=== PATIENT | male | born 1960 | race Hispanic/Latino ===

== ENCOUNTER 2022-09-13 09:24 | Emergency (ER) | payer BC ==
[2022-09-13] MEDS ORDERED: MORPHINE 4 MG/ML SYR ONE (09:53)
[2022-09-13] MEDS ORDERED: FAMOTIDINE 20 MG/2 ML VIAL IV ONE (09:53)
[2022-09-13] MEDS ORDERED: ONDANSETRON 4 MG/2 ML VIAL ONE (09:53)
[2022-09-13 10:06] LABS: Urine Blood Negative (Negative); Urine Glucose Negative (Negative); Urine Protein Negative (Negative)
[2022-09-13 10:11] LABS: Absolute Lymphocytes (CBC) 0.5 K/uL (0.7-4.9); Hematocrit 30.9 % (39.6-49.0); MCV 88.5 fL (80-100); MPV 7.8 fL (7.6-11.3); RBC Red Blood Cell Count 3.48 M/uL (4.33-5.43)
[2022-09-13 10:30] LABS: Albumin 2.8 g/dL (3.4-5.0); Bilirubin Total 0.4 mg/dL (0.2-1.0); Potassium 3.4 mmol/L (3.5-5.1); Protein, Total 7.4 g/dL (6.4-8.2)
--- NOTE | 2022-09-13 11:17 | RAD REPORT ---
EXAM DESCRIPTION: CTAbdomen Pelvis W Contrast - 09/13/2022 10:57 am CLINICAL HISTORY: Abdominal pain. lower abdominal pain, diarrhea COMPARISON: No comparisons TECHNIQUE: Biphasic CT imaging of the abdomen and pelvis was performed with 100 ml non-ionic IV cont rast. All CT scans are performed using dose optimization technique as appropriate and may include automated exposure control or mA/KV adjustment according to patient size. FINDINGS: The lung bases are clear. The liver, spleen, pancreas, adrenal glands and kidneys are within normal limits. No bowel obstruction, free air, free fluid or abscess. There is a thickened appearance in a circumfer ential fashion involving the majority of the ascending colon as well as the transverse colon. Mild in volvement of the rectosigmoid colon also suspected. This is favored to be related to colitis. The jordan endix is normal. No evidence of significant lymphadenopathy. No suspicious bony findings. IMPRESSION: Moderate thickened appearance to the colon greatest involving the ascending and transver se colon is noted. This suggests a nonspecific colitis. Recommend follow-up colonoscopy for direct visualization of the region.
[2022-09-13] MEDS ORDERED: Ringers Lactate 1,000 ML IV ONE (11:23)
--- NOTE | 2022-09-13 11:56 | EDPHYS ---
Physician Documentation [facility] Name: Eliseo Duarte SR. Age: 62 yrs Sex: Male : 1960 Arrival Date: 09/13/2022 Time: 09:35 Bed DIS4 Private MD: ED Physician Angel Mcfarland HPI: 09/13 09:45 This 62 yrs old Male presents to ER via Ambulatory with complaints of Back jmm Pain, Decreased Appetite, Diarrhea. 09:45 This is a 62 year old male with a history of ulcerative colitis that presents to the ED jmm with complaints of lower abdominal pain, multiple episodes of diarrhea, bloody bowel movements, body aches beginning approx 1.5 weeks ago. Patient states he is almost out of prescribed medications. . Historical: - Allergies: 09:46 No Known Allergies; ld1 - PMHx: 09:46 ulcerative colitis; ld1 - PSHx: 09:46 None; ld1 - Immunization history:: Adult Immunizations up to date, Client reports receiving the 2nd dose of the Covid vaccine. - Social history:: Smoking status: Patient denies any tobacco usage or history of. Patient uses alcohol, occasionally. ROS: 09:45 Constitutional: Positive for body aches, chills. jmm 09:45 Abdomen/GI: Positive for abdominal pain, diarrhea. 09:45 All other systems are negative. Exam: 09:45 Constitutional: This is a well developed, well nourished patient who is awake, alert, jmm and in no acute distress. Head/Face: atraumatic. Eyes: EOMI, no conjunctival erythema appreciated ENT: Moist Mucus Membranes Neck: Trachea midline, Supple Chest/axilla: Normal chest wall appearance and motion. Cardiovascular: Regular rate and rhythm. No edema appreciated Respiratory: Normal respirations, no respiratory distress appreciated 09:45 Back: Normal ROM Skin: General appearance color normal MS/ Extremity: Moves all extremities, no obvious deformities appreciated, no edema noted to the lower extremities Neuro: Awake and alert Psych: Behavior is normal, Mood is normal, Patient is cooperative and pleasant 09:45 Abdomen/GI: Inspection: abdomen appears normal, Bowel sounds: normal, Palpation: soft, mild abdominal tenderness, in the right lower quadrant and left lower quadrant. Vital Signs: 09:44 BP 142 / 87; Pulse 92; Resp 18; Temp 98.6(O); Pulse Ox 100% on R/A; Weight 98.43 kg; ld1 Height 5 ft. 8 in. (172.72 cm); Pain 04/28; 09:44 Body Mass Index 32.99 (98.43 kg, 172.72 cm) ld1 MDM: 09:45 Patient medically screened. [facility] 11:53 Data reviewed: vital signs, nurses notes. Counseling: I had a detailed discussion with [facility] the patient and/or guardian regarding: the historical points, exam findings, and any diagnostic results supporting the discharge/admit diagnosis, lab results, radiology results, the need for outpatient follow up, to return to the emergency department if symptoms worsen or persist or if there are any questions or concerns that arise at home. ED course: Patient is alert and non toxic in appearance in the ED. Patient advised to follow up with GI for further evaluation. Patient otherwise given strict return precautions. Patient understood and agrees with the plan of care. . 09/13 09:46 Order name: CBC with Diff; Complete Time: 10:32 [facility] 09/13 09:46 Order name: CMP; Complete Time: 10:32 [facility] 09/13 09:46 Order name: Lipase; Complete Time: 10:32 [facility] 09/13 09:46 Order name: CT Abd/Pelvis - IV Contrast Only; Complete Time: 11:18 [facility] 09/13 10:07 Order name: Urine Dipstick-Ancillary; Complete Time: 10:32 [facility] 09/13 09:46 Order name: IV Saline Lock; Complete Time: 10:04 [facility] 09/13 09:46 Order name: Labs collected and sent; Complete Time: 10:04 [facility] 09/13 09:46 Order name: Urine Dipstick-Ancillary (obtain specimen); Complete Time: 10:04 [facility] Administered Medications: 10:04 Drug: Pepcid (famotidine) 20 mg Route: IVP; Site: left forearm; ld1 10:30 Follow up: Response: No adverse reaction jl7 10:04 Drug: morphine 4 mg Route: IVP; Infused Over: 4 mins; Site: left forearm; ld1 10:30 Follow up: Response: No adverse reaction jl7 10:04 Drug: Zofran (Ondansetron) 4 mg Route: IVP; Site: left forearm; ld1 10:30 Follow up: Response: No adverse reaction; Nausea is decreased jl7 11:15 Drug: Lactated Ringers Solution 1000 ml Route: IV; Rate: 1000 bolus; Site: left forearm;jl7 13:15 Follow up: Response: No adverse reaction; IV Status: Completed infusion; IV Intake: jl7 1000ml Disposition Summary: 09/13/22 11:56 Discharge Ordered Location: Home [facility] Condition: Stable [facility] Diagnosis - Colitis [facility] Followup: [facility] - With: Maggie Nino MD - When: 2 - 3 days - Reason: Recheck today's complaints, Continuance of care, Re-evaluation by your physician Discharge Instructions: - Discharge Summary Sheet [facility] - Colitis [facility] Forms: - Medication Reconciliation Form [facility] - Thank You Letter [facility] - Antibiotic Education [facility] - Prescription Opioid Use [facility] Prescriptions: - Cipro 500 mg Oral Tablet - take 1 tablet by ORAL route every 12 hours for 10 days; 20 tablet; Refills: 0, [facility] Product Selection Permitted - Flagyl 500 mg Oral Tablet - take 1 tablet by ORAL route every 6 hours for 10 days; 40 tablet; Refills: 0, [facility] Product Selection Permitted - mesalamine 1.2 gram Oral tablet,delayed release (DR/EC) - take 3 tablet by ORAL route once daily with a meal; 270 tablet; Refills: 0, [facility] Product Selection Permitted - azathioprine 50 mg Oral tablet - take 2 tablet by ORAL route once daily; 180 tablet; Refills: 0, Product [facility] Selection Permitted - Medrol (Kaiden) 4 mg Oral Tablets, Dose Pack - take 1 tablet by ORAL route as directed - follow package instructions; 1 [facility] packet; Refills: 0, Product Selection Permitted - dicyclomine 20 mg Oral Tablet - take 1 tablet by ORAL route 4 times per day As needed; 30 tablet; Refills: 0, [facility] Product Selection Permitted Signatures: Dispatcher [employer] Dayron Contreras PA PA [facility] Blue Hawthorne RN RN jl7 Irina Pichardo RN RN ld1
--- NOTE | 2022-09-13 11:56 | ER ---
Nurse's Notes [facility] Name: Eliseo Duarte SR. Age: 62 yrs Sex: Male : 1960 Arrival Date: 09/13/2022 Time: 09:35 Bed DIS4 Private MD: Diagnosis: Colitis Presentation: 09/13 09:44 Chief complaint: Patient states: 1.5 weeks - decreased appetite, blood in stool, ld1 abdominal pain, fatigue. Coronavirus screen: At this time, the client does not indicate any symptoms associated with coronavirus-19. Ebola Screen: No symptoms or risks identified at this time. Initial Sepsis Screen: Does the patient meet any 2 criteria? No. Patient's initial sepsis screen is negative. Does the patient have a suspected source of infection? No. Patient's initial sepsis screen is negative. Risk Assessment: Do you want to hurt yourself or someone else? Patient reports no desire to harm self or others. Onset of symptoms was September 13, 2022 at 09:46. 09:44 Method Of Arrival: Ambulatory ld1 09:44 Acuity: SUNSHINE 3 ld1 Triage Assessment: 09:46 General: Appears in no apparent distress. uncomfortable, Behavior is calm, cooperative, ld1 appropriate for age. Pain: Complains of pain in abdomen Pain does not radiate. Pain currently is 8 out of 10 on a pain scale. Quality of pain is described as throbbing. EENT: No signs and/or symptoms were reported regarding the EENT system. Neuro: Level of Consciousness is awake, alert, obeys commands, Oriented to person, place, time, situation. Cardiovascular: Capillary refill < 3 seconds Patient's skin is warm and dry. Respiratory: Airway is patent Respiratory effort is even, unlabored. GI: Abdomen is round non-distended, Reports diarrhea. : No signs and/or symptoms were reported regarding the genitourinary system. Derm: No signs and/or symptoms reported regarding the dermatologic system. Musculoskeletal: No signs and/or symptoms reported regarding the musculoskeletal system. Historical: - Allergies: 09:46 No Known Allergies; ld1 - PMHx: 09:46 ulcerative colitis; ld1 - PSHx: 09:46 None; ld1 - Immunization history:: Adult Immunizations up to date, Client reports receiving the 2nd dose of the Covid vaccine. - Social history:: Smoking status: Patient denies any tobacco usage or history of. Patient uses alcohol, occasionally. Screenin:21 [facility] ED Fall Risk Assessment (Adult) History of falling in the last 3 months, jl7 including since admission No falls in past 3 months (0 pts) Confusion or Disorientation No (0 pts) Intoxicated or Sedated No (0 pts) Impaired Gait No (0 pts) Mobility Assist Device Used No (0 pt) Altered Elimination No (0 pt) Score/Fall Risk Level 0 - 2 = Low Risk. Abuse screen: Denies threats or abuse. Denies injuries from another. Nutritional screening: No deficits noted. Tuberculosis screening: No symptoms or risk factors identified. Assessment: 12:21 Reassessment: Pt up for discharge, pt will be discharged once fluids are done infusing. jl7 Vital Signs: 09:44 BP 142 / 87; Pulse 92; Resp 18; Temp 98.6(O); Pulse Ox 100% on R/A; Weight 98.43 kg; ld1 Height 5 ft. 8 in. (172.72 cm); Pain 8/10; 09:44 Body Mass Index 32.99 (98.43 kg, 172.72 cm) ld1 ED Course: 09:35 Patient arrived in ED. rg4 09:40 Dayron Snyder PA is PHCP. jmm 09:40 Angel Mcfarland MD is Attending Physician. jmm 09:46 Triage completed. ld1 09:46 Arm band placed on right wrist. ld1 10:04 Inserted saline lock: 20 gauge in left forearm, using aseptic technique. Blood ld1 collected. 10:59 CT Abd/Pelvis - IV Contrast Only In Process Unspecified. EDMS 11:55 Maggie Nino MD is Referral Physician. jmm 12:19 Blue Hawthorne, ESA is Primary Nurse. jl7 12:21 Patient has correct armband on for positive identification. jl7 12:21 No provider procedures requiring assistance completed. jl7 13:15 IV discontinued, intact, bleeding controlled, No redness/swelling at site. Pressure jl7 dressing applied. Administered Medications: 10:04 Drug: Pepcid (famotidine) 20 mg Route: IVP; Site: left forearm; ld1 10:30 Follow up: Response: No adverse reaction jl7 10:04 Drug: morphine 4 mg Route: IVP; Infused Over: 4 mins; Site: left forearm; ld1 10:30 Follow up: Response: No adverse reaction jl7 10:04 Drug: Zofran (Ondansetron) 4 mg Route: IVP; Site: left forearm; ld1 10:30 Follow up: Response: No adverse reaction; Nausea is decreased jl7 11:15 Drug: Lactated Ringers Solution 1000 ml Route: IV; Rate: 1000 bolus; Site: left forearm;jl7 13:15 Follow up: Response: No adverse reaction; IV Status: Completed infusion; IV Intake: jl7 1000ml Medication: 12:21 VIS not applicable for this client. jl7 Intake: 13:15 IV: 1000ml; Total: 1000ml. jl7 Outcome: 11:56 Discharge ordered by . dane 13:15 Discharged to home ambulatory. jl7 13:15 Condition: stable 13:15 Discharge instructions given to patient, Instructed on discharge instructions, follow up and referral plans. medication usage, Demonstrated understanding of instructions, follow-up care, medications, Prescriptions given X 6 13:16 Patient left the ED. jl7 Signatures: Dispatcher [employer] EDMS Dayron Snyder PA PA jmm Garcia, Rubi rg4 Blue Hawthorne RN RN jl7 Irina Pichardo RN RN ld1
[2022-09-13 13:30] VITALS: BP 142/87; TEMP 98.6; O2SAT 100
== END 2022-09-13 13:16 | disposition home or self-care (01) ==
LOC: ER 09:24
DX: K52.9 Noninfective gastroenteritis and colitis, unspecified (principal)
CPT/HCPCS: 85025; 36415; 81003; 83690; 80053; 74177; Q9967; J7120; J2405; 96361; 96374; 96375; 99284